=== PATIENT | female | born 1980 | race Caucasian/White ===

== ENCOUNTER 2017-09-05 05:00 | Inpatient (IN) ==
[2017-09-05] MEDS ORDERED: Famotidine 20 MG/2 ML VIAL IVP PRN (05:09)
[2017-09-05] MEDS ORDERED: Naloxone 0.4 MG/ML INJ IVP PRN (05:09)
[2017-09-05] MEDS ORDERED: Lidocaine 1% 20 ML MDV INFILT PRN (05:09)
[2017-09-05] MEDS ORDERED: Ondansetron 4 MG/2 ML VIAL IVP PRN (05:09)
[2017-09-05] MEDS ORDERED: Metoclopramide 10 MG/2 ML VIAL IVP PRN (05:09)
[2017-09-05] MEDS ORDERED: *HR* Nalbuphine 10 MG/ML AMPUL IVP PRN (05:09)
[2017-09-05] MEDS ORDERED: D5% in 0.45% NACL 1,000 ML IVC SCH (05:15)
[2017-09-05] MEDS ORDERED: Ringers Solution, Lactated 1,000 ML IVC SCH (05:15)
[2017-09-05 06:00] LABS: Basophils % 0.2 %; Eosinophils # 0.1 K/mcL (0.0-0.6); Eosinophils % 0.8 %; Hematocrit 34.8 % (35.3-44.9); Hemoglobin 11.9 g/dL (11.5-15.4); Immature Granulocytes % 0.5 % (0-4); Lymphocytes % 21.9 %; Mean Corpuscular HGB Conc 34.2 g/dL (31.6-35.5); Mean Corpuscular Hemoglobin 29.8 pg (28.0-33.3); Mean Corpuscular Volume 87.2 fL (83.0-100.0); Mean Platelet Volume 11.2 fL (9.4-12.4); Monocytes # 0.6 K/mcL (0.0-1.3); Monocytes % 6.4 %; Neutrophils # 6.4 K/mcL (1.6-8.9); Platelet Count 182 K/mcL (140-400); Red Blood Count 3.99 M/mcL (3.82-4.97); Red Cell Distribution Width 14.2 % (11.5-14.5); Segmented Neutrophils % 70.2 %
[2017-09-05 06:08] LABS: Amphetamine Screen,Urine Negative ng/mL (Cutoff=1000); Barbiturate Screen,Urine Negative ng/mL (Cutoff=200); Benzodiazepines Screen,Urine Negative ng/mL (Cutoff=200); Cannabinoid Screen,Urine Negative ng/mL (Cutoff = 50); Cocaine Screen,Urine Negative ng/mL (Cutoff= 300); Opiate Screen,Urine Negative ng/mL (Cutoff=300); Phencyclidine Screen,Urine Negative ng/mL (Cutoff=25)
[2017-09-05] MEDS: miSOPROStol 25 MCG TABLET PO PRN ×2 (06:26→10:56)
--- NOTE | 2017-09-05 09:11 | History & Physical Report ---
Date of Encounter: 09/05/17 Time of Encounter: 09:10 24 Hour HP Update - Instructions Instructions: If the History and Physical is less than 30 days old and was completed prior to A.M. admission and or procedure and has NOT been updated on calendar day of procedure please complete this update prior to performing procedure. - Update Patient reports changes in Medical Condition: No Changes in examination, assessment, or condition: No Changes in Medication: No Preop tests/diagnostics Reviewed: Yes Surgery Remains Indicated: Yes Consent for Planned Operative Procedure(s) Verified: Yes - Pre-Operative Checklist Preoperative Checklist Indicated: No
--- NOTE | 2017-09-05 09:18 | OB Labor Progress Note ---
Date of Encounter: 09/05/17 Time of Encounter: 09:16 Labor Progress Note - Subjective Subjective: The patient reports appreciating contractions, feels the summer stronger than others but none are extremely uncomfortable at this time. She has had no loss of fluid or vaginal bleeding. Fetus is still active. - Vital Signs Vital Signs: Afebrile, vital signs stable - Cervix Cervix: 4/50/-2 - Heart Tones Heart Tones: 130s baseline, CAT 1 - [place]: Every 6-8 minutes, mild - Interventions Interventions: 39 week IUP, grand multipara for induction of labor - Plan Plan: Cytotec for initial induction of labor. Continue close monitoring for further interventions.
--- NOTE | 2017-09-05 10:32 | Anesthesia Evaluation PreOp ---
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 No interventions. Stayed at home, resolved in 1 day.) Anesthesia History: No Prior Anesthetic Complications : Yes Alcohol Use: none Drug use: none Medications and Allergies Magnesium 400 mg PO DAILY 03/02/15 [History] Ferrous Sulfate [Iron] 1 tab PO BID 09/05/17 [History] Folic Acid [Folic Acid] 09/05/17 [History] 3 Allergy/AdvReac Type Severity Reaction Status Date / Time Amoxicillin [From Augmentin] Allergy Hives Verified 09/05/17 05:30 clavulanic acid Allergy Hives Verified 09/05/17 05:30 [From Augmentin] Penicillins Allergy Hives Verified 09/05/17 05:30 - Meds/Allergy Pre-op Review Medications Reviewed: Yes Allergies Reviewed: Yes Beta Blockers on Current Med List: No Anesthesia Results - Labs 09/05/17 05:40 Anesthesia Exam O2 Sat Height 1.68 m Height 1.68 m Weight 105.4 kg Weight 105.4 kg NPO (# of Hours): 6 Pain Scale: 3 Pain Scale Used: Numeric (1 - 10) - HEENT Pupil (Motor): Pupils equal Mallampati: II Teeth: Normal Oral Opening: Greater than 3 - RETAIL MANAGEMENT KEYHOLDER LOC: Oriented RETAIL MANAGEMENT KEYHOLDER Motor: Normal RUE, Normal LUE, Normal RLE, Normal LLE, Normal Face [employer]AIL MANAGEMENT KEYHOLDER Sensory: Normal: RUE, LUE, RLE, LLE, Face - Cardiac Rhythm: Regular Murmur: None JVD: No Carotid Bruit: No - Pulmonary Breath Sounds: bilateral Clear Respiratory Effort: Symmetrical Anesthesia Assess/Plan ASA Score: 2 Modified Keren Scale for Level of Consciousness: Cooperative, oriented, and tranquil Anesthetic Plan: General (plan b), Regional (plan a) Autologous Blood: Yes Monitoring Plan: Standard Monitors
[2017-09-05] MEDS ORDERED: Ringers Solution, Lactated 500 ML IVC ONE (10:33)
[2017-09-05] MEDS ORDERED: EPHEDrine 50 MG/ML VIAL IVP PRN (10:33)
[2017-09-05] MEDS ORDERED: Epidural Premix (fent/bupiv) 110 ML EP SCH (10:45)
--- NOTE | 2017-09-05 12:43 | OB Labor Progress Note ---
Date of Encounter: 09/05/17 Time of Encounter: 12:41 Labor Progress Note - Subjective Subjective: The patient reports being comfortable with contractions although she is appreciating them - Vital Signs Vital Signs: Afebrile, vital signs stable - Cervix Cervix: 4/70/-1, vertex - Heart Tones Heart Tones: 140s, CAT 1 - [place]: Irregular every 4-8 minutes after oral Cytotec - Interventions Interventions: 39 week IUP for induction of labor, gram multipara - Plan Plan: AROM, moderate amount of pink tinged amniotic fluid. Anticipate vaginal delivery
[2017-09-05] MEDS ORDERED: Epidural Premix (fent/bupiv) 110 ML EP ONE ×2 (13:14→16:22)
--- NOTE | 2017-09-05 13:41 | Anesthesia Procedures ---
Date of Encounter: 09/05/17 Time of Encounter: 13:38 Procedures: Anesthesia - Epidural/Spinal Patient ID/Chart reviewed: Yes Patient examined: Yes OB Eval: Gestational age: 39.3 OB Eval: : 5 OB Eval: Hx Para: 4 OB Eval: Dilated at (cm): 5 OB Eval: Contractions: Non-stressed pattern Consent Obtained: Yes Supplemental Oxygen: None/Room Air Site Prep: Aseptic Technique, Sterile prep and drape, Povidone-Iodine 1% Patient position: upright Local Anesthetic: Lidocaine 1% Amount of Local Anesthetic used: 3 Touhy Needle Gauge: 18 Touhy Needle Depth (cm): 8 Catheter Depth at Skin (cm): 20 Test Dose (1.5% Lido + Epi): Volume given (mls): 5 Test Dose Result: Negative Loading Dose: Other: 10ml of epidural pharm bag premix Loading Dose Administered: Thru Catheter Infusion Med: 0.125% Bupivacaine w/ 2 mcg/ml Fentanyl Infusion Rate (mls/hr): 15 ([id number]) Catheter Secured in Place: Tegaderm, Tape Interspace Used: L3-L4 Loss of Resistance (AL): Yes Blood: No CSF: No Paresthesia: No Procedure: pt tolerated procedure well. no complications. vss. fhr stable. see nursing notes for complete vitals.
[2017-09-05] MEDS ORDERED: Oxytocin 20 units/ LR 1000 mL 20 UNIT/1,000 ML BAG IVC ONE (15:07)
[2017-09-05] MEDS ORDERED: Oxytocin 20 units/ LR 1000 mL 20 UNIT/1,000 ML BAG IVC SCH ×2 (15:15→19:34)
--- NOTE | 2017-09-05 18:09 | OB/GYN Procedure Note ---
Delivery - Delivery Date: 09/05/17 Provider: Dinorah Boyer Intrapartum events: none Delivery induction: misoprostol Delivery augmentation: rupture of membranes, pitocin Delivery monitor: external FHT, external uterine Anesthesia: none Quantitated Blood Loss: 200 - Infant (s) A Delivery Date: 09/05/17 Delivery Time: 17:38 Presentation: vertex Position: CHENTE Route of delivery: Gender: Female Viability: Viable Pounds: 8 Ounces: 10 Weight Gram: 3.9 kg at 1 minute: 9 at 5 mins: 9 Shoulder Dystocia: not encountered Placenta: spontaneous Cord: nuchal cord, 3 umbilical vessels, delivered through nuchal - Repair Episiotomy: none Laceration Description: Periurethral, Superficial (Perineal) - Complications Delivery complications: none Delivery comments: The patient was complete and pushing with epidural anesthesia with a spontaneous vaginal delivery in the CHENTE position of a vigorous female infant weighing 8 lbs.10 oz. with Apgars of 9 at 1 minute and 9 at 5 [address] was placed on the maternal abdomen. The cord was clamped and cut after pulsations ceased. Cord blood obtained. The placenta was delivered spontaneous and intact. Superficial perineal laceration and superficial perineal lacerations were hemostatic and not repaired. Estimated blood loss 200 mL, complications none - Disposition Mom disposition: stable in LDR [place] disposition: stable in LDR
[2017-09-05] MEDS ORDERED: Acetaminophen 325 MG TABLET PO PRN (19:34)
[2017-09-05] MEDS: Ibuprofen 600 MG TABLET PO SCH (21:33)
[2017-09-06] MEDS: Ibuprofen 600 MG TABLET PO SCH (04:29)
[2017-09-06 08:23] VITALS: BP 108/72
[2017-09-06] MEDS ORDERED: Prenatal Vit/FA 1 EACH TABLET PO SCH (09:00)
--- NOTE | 2017-09-06 09:03 | Discharge Summary ---
Date of Encounter: 09/06/17 Time of Encounter: 09:04 - Discharge Diagnosis (1) Vaginal delivery Priority: Primary Status: Acute Comments: Doing well. Reports pain well controlled with Ibuprofen. Tolerating regular diet , ambulating and voiding without difficulty. Infant in arms sleeping, states well. Lochia light and without clots. Desires to go home today. Declines prescriptions, states has vitamins and Ibuprofen at home. - Discharge Medications Home Medications: Magnesium 400 mg PO DAILY 03/02/15 [History] Acetaminophen [Tylenol] 650 mg PO Q6HR PRN tablet 09/06/17 [Rx] Ibuprofen [Motrin] 600 mg PO Q6HR tablet 09/06/17 [Rx] Vit/FA 1 each PO DAILY tablet 09/06/17 [Rx] Allergies/Adverse Reactions: 3 Allergy/AdvReac Type Severity Reaction Status Date / Time Amoxicillin [From Augmentin] Allergy Hives Verified 09/05/17 05:30 clavulanic acid Allergy Hives Verified 09/05/17 05:30 [From Augmentin] Penicillins Allergy Hives Verified 09/05/17 05:30 Data Procedures and tests throughout hospitalization: Laboratory Tests 09/05/17 09/05/17 05:40 05:40 WBC 9.1 RBC 3.99 Hgb 11.9 Hct 34.8 L MCV 87.2 MCH 29.8 MCHC 34.2 RDW 14.2 Plt Count 182 MPV 11.2 Immature Gran % 0.5 Seg Neutrophils % 70.2 Lymphocytes % 21.9 Monocytes % 6.4 Eosinophils % 0.8 Basophils % 0.2 Neutrophils # 6.4 Lymphocytes # 2.0 Monocytes # 0.6 Eosinophils # 0.1 Basophils # 0.0 Urine Opiates Screen Negative Ur Barbiturates Screen Negative Ur Phencyclidine Scrn Negative Ur Amphetamines Screen Negative U Benzodiazepines Scrn Negative Urine Cocaine Screen Negative U Marijuana (THC) Screen Negative Date of admission: 09/05/17 05:07 Primary care physician: Lisa Samano, Consults: 09/05/17 19:34 Consult to Flight Dynamicist [CONS] Routine Comment: Vaginal delivery, consult needed Discharging clinician: Sonal Ochoa Anticipated date of discharge: 09/06/17 - Patient Status Disposition: Home, Self-Care Condition: Good Functional capacity at discharge: independent ambulation Overall status at discharge: patient is progressing back to baseline - Discharge Instructions Follow Up With: Lisa Samano CNP [Primary Care Provider] - Dinorah Boyer MD [Partnered Physician] - Additional Instructions: Perineal Care: Always wipe front to back Change your pad frequently Use your hernandez bottle with warm water and spray front to back Do not douche, use tampons, have sexual intercourse or put anything in your vagina for 4-6 weeks after delivery Bleeding: Vaginal bleeding can last up to 6 weeks Your menstrual period may return as early as 6 weeks after you are discharged from the hospital [place]/Stitches Care: Vaginal Delivery Vaginal stitches will dissolve within 4-6 weeks Follow perineal care instructions Care Stitches will dissolve on their own If you have latisha, they will need to be removed in the doctors office within 5-7 days. You may shower with stitches or latisha Drip plan or soapy water over the incision to clean. Pat dry gently with a clean towel. Make sure you completely dry under the skin folds DO NOT USE powders, lotions, rubbing alcohol or hydrogen peroxide on or around your incision. This will slow your wound healing It is normal to have soreness, burning, tingling, itchiness and/or numbness as your incision heals Activity: Rest frequently Do not lift anything heavier than a gallon of milk, up to 10-15 pounds No driving for 1-2 weeks for Vaginal delivery No driving for 2-4 weeks for delivery Take stairs slowly, one at a time Gradually increase your daily activity until you are back to your normal routine Do not exercise until you have had your follow-up appointment Bathing: Take a shower daily Do not take a tub bath for the first 4 weeks Diet: Drink plenty of water and fruit juices Eat a well-balanced diet with foods high in fiber such as fruits and vegetables Depression: Your hormones have a major impact on your feelings and emotions. Hormone imbalance may cause changes in your mood, creating unfamiliar thoughts and actions. Support is available to help you understand and cope with these feelings and mood changes. If you answer yes to any of the following questions, please call your health care provider: Are you having trouble sleeping? Are you feeling isolated? Have you lost your appetite? Are you having thoughts of hurting yourself or others? WARNING SIGNS: Heavy bleeding from the vagina (blood is bright red and soaks a sanitary pad in an hour or less.) Passing a blood clot larger than your fist Discharge from the vagina that has a bad odor Temperature over 100.4 F, or if you feel cold and have chills An episiotomy site that is warm, swollen or oozing. Use a mirror if needed Urination (pee) that is painful, very red and swollen or leaking fluid An incision that is painful, very red and swollen and leaking fluid An incision that has come open Breasts that are painful or full with flu like symptoms Redness, warmth or swelling in the calf of your leg Trouble breathing, dizziness, visual disturbance or faintness *Notify your health care provider immediately or go to the nearest Emergency Room if you experience any of the above signs.* To contact the nurses station 24 hours a day, For non-urgent, routine questions, please call the office at - Diet and Activity Activity: resume usual activities as tolerated Diet: advance to your usual diet 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 for admission: other Time Attestation: Total time spent providing and/or coordinating discharge services: Time Spent: Less than 30 minutes Exam - Constitutional Vitals: Temp Pulse Resp BP Pulse Ox 98.0 F 68 14 108/72 98 09/06/17 08:22 09/06/17 08:22 09/06/17 08:22 09/06/17 08:22 09/06/17 04:00 General appearance IM: cooperative, A&O X 3, pleasant, no acute distress, answers questions appropriately - Respiratory Respiratory exam: Present: CTAB - Cardiovascular Cardiovascular exam IM: Present: RRR - GI/Abdominal GI/Abdominal exam IM: normal bowel sounds - Rectal Rectal exam: deferred - Uterine Tone: Firm Uterus Position: 1 Finger Below Umbilicus, Midline - Extremities Exam Extremities exam IM: Present: full ROM, normal inspection, radial pulses palpable and symmetrical - Neurological Exam Neurological exam: alert, oriented X3, reflexes normal - VTE Reasons for not Prescribing Prophylaxis: Treatment not Indicated - Low risk for VTE
[2017-09-06] MEDS ORDERED: Aminoglycoside Consult 1 EACH MC ONE (16:59)
== END 2017-09-06 17:00 | disposition home or self-care (01) | DRG 775 ==
LOC: 1NENULAB 05:07 → 1NENUOBS 20:25
PROVIDERS: ADMIT Obstetrics & Gynecology; ATTEND Obstetrics & Gynecology